=== PATIENT | female | born 1955 | race Caucasian/White ===

== ENCOUNTER 2023-05-03 16:35 | Emergency (ER) | payer BC ==
[~2023-05-03] VITALS: Ht 157.5 cm; Wt 49.9 kg
[2023-05-03] MEDS ORDERED: IBUPROFEN 600 MG TAB PO STA (16:48)
[2023-05-03 16:51] VITALS: O2SAT 98
[2023-05-03] MEDS ORDERED: ULTRAM 50MG50 MG PO (18:09)
[2023-05-03] MEDS ORDERED: DICLOFENAC SODI50 MG PO (18:12)
== END 2023-05-03 18:28 | disposition home or self-care (01) ==
LOC: FSED 16:38
DX: S82.64XA Nondisplaced fracture of lateral malleolus of right fibula, initial encounter for closed fracture (principal); Y92.89 Other specified places as the place of occurrence of the external cause; X50.1XXA Overexertion from prolonged static or awkward postures, initial encounter; Y93.01 Activity, walking, marching and hiking; R50.9 Fever, unspecified
CPT/HCPCS: 99283

== ENCOUNTER 2023-09-26 16:40 | Emergency (ER) | payer BC ==
[~2023-09-26] VITALS: Ht 157.5 cm; Wt 49.9 kg
[~2023-09-26 16:40] MED LIST: DICLOFENAC SODI50 MG PO; ULTRAM 50MG50 MG PO
[2023-09-26] MEDS ORDERED: BENZONATATE100 MG PO (17:24)
[2023-09-26 17:38] VITALS: BP 120/75; PULSE 72; RESP 17; O2SAT 100
== END 2023-09-26 17:37 | disposition home or self-care (01) ==
LOC: ER 16:46
DX: R05.9 Cough, unspecified (principal); U07.1 COVID-19; R51.9 Headache, unspecified; R42 Dizziness and giddiness
CPT/HCPCS: 99282